=== PATIENT | male | born 1980 | race African-American/Black ===

== ENCOUNTER 2016-09-12 01:31 | Emergency (ER) | payer MEDICAID, MEDICARE ==
[~2016-09-12] VITALS: Ht 188 cm; Wt 70.0 kg
[2016-09-12 01:35] VITALS: BP 117/72
== END 2016-09-12 02:40 | disposition left against medical advice (07) ==
LOC: ER 01:35
DX: M54.5 Low back pain (principal); Z53.21 Procedure and treatment not carried out due to patient leaving prior to being seen by health care provider